=== PATIENT | male | born 1940 | race American Indian/Alaskan Native ===

== ENCOUNTER 2017-11-09 15:25 | Emergency (ER) | payer MEDICARE ==
[2017-11-09 15:34] VITALS: BP 134/78
--- NOTE | 2017-11-09 18:01 | Emergency Department Report ---
ED Extremity Problem HPI - General Chief complaint: Shoulder Injury Stated complaint: SHOULDER PAIN Time Seen by Provider: 11/09/17 17:36 Source: patient Mode of arrival: Ambulatory Limitations: No Limitations - History of Present Illness Initial comments: Patient is a 77-year-old male who is presenting with left shoulder pain for the past month. Patient states he stumbled in the yard and fell month ago and was hoping that by now shoulder feel better but is not. Patient states he has increased pain mostly at night when he is laying down to wake up after rolling over on a shoulder and pain. Patient states that at worst the pain is 7 out of 10 and he states in the daytime the pain is very tolerable and is a 2 out of 10. Patient states he mentioned this to his primary care physician 2 weeks ago who told him to "stop falling. Patient has been taking Motrin with minimal relief. Patient has not injuries or complaints at this time. - Related Data Previous Rx's Medication Instructions Recorded Last Taken Type Ibuprofen [Motrin] 600 mg PO Q8H PRN #20 tablet 11/09/17 Unknown Rx methOCARBAMOL [Robaxin TAB] 500 mg PO Q6H PRN #15 tablet 11/09/17 Unknown Rx traMADol [Ultram] 50 mg PO Q6HR PRN #12 tablet 11/09/17 Unknown Rx Allergies Allergy/AdvReac Type Severity Reaction Status Date / Time Penicillins Allergy Swelling Verified 11/09/17 15:31 ED Review of Systems ROS: Stated complaint: SHOULDER PAIN Other details as noted in HPI Comment: All other systems reviewed and negative ED Past Medical Hx - Past Medical History Previous Medical History?: No - Surgical History Past Surgical History?: No - Social History Smoking Status: Never Smoker Substance Use Type: None - Medications Home Medications: Home Medications Medication Instructions Recorded Confirmed Last Taken Type Ibuprofen [Motrin] 600 mg PO Q8H PRN #20 tablet 11/09/17 Unknown Rx methOCARBAMOL [Robaxin TAB] 500 mg PO Q6H PRN #15 tablet 11/09/17 Unknown Rx traMADol [Ultram] 50 mg PO Q6HR PRN #12 tablet 11/09/17 Unknown Rx ED Physical Exam - General Limitations: No Limitations General appearance: alert, in no apparent distress - Head Head exam: Present: atraumatic, normocephalic - Eye Eye exam: Present: normal appearance - ENT ENT exam: Present: mucous membranes moist - Neck Neck exam: Present: normal inspection - Respiratory Respiratory exam: Present: normal lung sounds bilaterally. Absent: respiratory distress - Cardiovascular Cardiovascular Exam: Present: regular rate, normal rhythm. Absent: systolic murmur, diastolic murmur, rubs, gallop - GI/Abdominal GI/Abdominal exam: Present: soft, normal bowel sounds - Rectal Rectal exam: Present: deferred - Extremities Exam Extremities exam: Present: normal inspection - Back Exam Back exam: Present: normal inspection - Neurological Exam Neurological exam: Present: alert, oriented X3 - Psychiatric Psychiatric exam: Present: normal affect, normal mood - Skin Skin exam: Present: warm, dry, intact, normal color. Absent: rash ED Course Vital Signs 11/09/17 15:31 Temperature 97.8 F Pulse Rate 78 Respiratory 18 Rate Blood Pressure 134/78 O2 Sat by Pulse 97 Oximetry ED Medical Decision Making - Medical Decision Making Visual be started on a muscle relaxant and something for pain. Patient referred to orthopedics Dr. Bkaer. Patient will be discharged home at this time. X-rays are not warranted this patient there is no bony tenderness. Critical care attestation.: If time is entered above; I have spent that time in minutes in the direct care of this critically ill patient, excluding procedure time. ED Disposition Clinical Impression: Shoulder pain Qualifiers: Chronicity: unspecified Laterality: left Qualified Code(s): M25.512 - Pain in left shoulder Disposition: -01 TO HOME OR SELFCARE Is pt being admited?: No Does the pt Need Aspirin: No Condition: Stable Instructions: Arthralgia (ED), Rotator Cuff Injury (ED) Referrals: WM BAKER MD [Staff Physician] - 3-5 Days
== END 2017-11-09 18:54 | disposition home or self-care (01) ==
LOC: ED 15:25
DX: M25.512 Pain in left shoulder (principal); Z88.0 Allergy status to penicillin
CPT/HCPCS: 99282

== ENCOUNTER 2018-09-24 11:28 | Emergency (ER) | payer MEDICARE, OTHER ==
[2018-09-24 11:40] VITALS: BP 140/83
--- NOTE | 2018-09-24 12:58 | Emergency Department Report ---
- General Chief complaint: Skin/Abscess/Foreign Body Stated complaint: BUMP ON (L) SHOULDER Time Seen by Provider: 09/24/18 12:41 Source: patient Mode of arrival: Ambulatory Limitations: No Limitations - History of Present Illness MD complaint: abscess/boil -: days(s) (3) Tetanus Up to Date: yes Location: back Severity: moderate Severity scale (0 -10): 4 - Related Data Previous Rx's Medication Instructions Recorded Last Taken Type Ibuprofen [Motrin] 600 mg PO Q8H PRN #20 tablet 11/09/17 Unknown Rx methOCARBAMOL [Robaxin TAB] 500 mg PO Q6H PRN #15 tablet 11/09/17 Unknown Rx traMADol [Ultram] 50 mg PO Q6HR PRN #12 tablet 11/09/17 Unknown Rx Allergies Allergy/AdvReac Type Severity Reaction Status Date / Time Penicillins Allergy Swelling Verified 09/24/18 11:29 Abscess Boil HPI - HPI Chief Complaint: Skin/Abscess/Foreign Body Stated Complaint: BUMP ON (L) SHOULDER Time Seen by Provider: 09/24/18 12:41 Home Medications: Previous Rx's Medication Instructions Recorded Last Taken Type Ibuprofen [Motrin] 600 mg PO Q8H PRN #20 tablet 11/09/17 Unknown Rx methOCARBAMOL [Robaxin TAB] 500 mg PO Q6H PRN #15 tablet 11/09/17 Unknown Rx traMADol [Ultram] 50 mg PO Q6HR PRN #12 tablet 11/09/17 Unknown Rx Allergies/Adverse Reactions: Allergies Allergy/AdvReac Type Severity Reaction Status Date / Time Penicillins Allergy Swelling Verified 09/24/18 11:29 ED Review of Systems ROS: Stated complaint: BUMP ON (L) SHOULDER Other details as noted in HPI Comment: All other systems reviewed and negative Constitutional: denies: chills, fever Respiratory: denies: cough, orthopnea, shortness of breath, SOB with exertion, SOB at rest Cardiovascular: denies: chest pain Gastrointestinal: denies: abdominal pain, nausea, vomiting, diarrhea, constipation, hematemesis, melena, hematochezia Musculoskeletal: denies: back pain Skin: lesions Neurological: denies: headache, weakness ED Past Medical Hx - Past Medical History Previous Medical History?: No - Surgical History Past Surgical History?: No - Social History Smoking Status: Current Every Day Smoker Substance Use Type: None - Medications Home Medications: Home Medications Medication Instructions Recorded Confirmed Last Taken Type Ibuprofen [Motrin] 600 mg PO Q8H PRN #20 tablet 11/09/17 Unknown Rx methOCARBAMOL [Robaxin TAB] 500 mg PO Q6H PRN #15 tablet 11/09/17 Unknown Rx traMADol [Ultram] 50 mg PO Q6HR PRN #12 tablet 11/09/17 Unknown Rx ED Physical Exam - General Limitations: No Limitations General appearance: alert, in no apparent distress - Head Head exam: Present: atraumatic, normocephalic, normal inspection - Eye Eye exam: Present: normal appearance, PERRL - ENT ENT exam: Present: normal exam, normal orophraynx, mucous membranes moist - Neck Neck exam: Present: normal inspection, full ROM. Absent: tenderness, meningismus, lymphadenopathy, thyromegaly - Respiratory Respiratory exam: Present: normal lung sounds bilaterally - Cardiovascular Cardiovascular Exam: Present: regular rate, normal rhythm, normal heart sounds - GI/Abdominal GI/Abdominal exam: Present: soft, normal bowel sounds. Absent: distended, tenderness, guarding, rebound, rigid, organomegaly, mass, bruit, pulsatile mass - Extremities Exam Extremities exam: Present: normal inspection, full ROM, normal capillary refill. Absent: pedal edema, calf tenderness - Back Exam Back exam: Present: normal inspection, full ROM. Absent: CVA tenderness (L), muscle spasm, paraspinal tenderness - Neurological Exam Neurological exam: Present: alert, oriented X3, CN II-XII intact (33 cm abscess to the upper back) ED Course Vital Signs 09/24/18 11:36 Temperature 97.8 F Pulse Rate 66 Respiratory 20 Rate Blood Pressure 140/83 O2 Sat by Pulse 97 Oximetry - I & D Back Type of Procedure: Simple Blade Size: 11 I & D Procedure: betadine prep, sterile drapes applied, sterile dressing applied Critical care attestation.: If time is entered above; I have spent that time in minutes in the direct care of this critically ill patient, excluding procedure time. ED Disposition Clinical Impression: Abscess Disposition: DC-01 TO HOME OR SELFCARE Is pt being admited?: No Condition: Stable Instructions: Abscess (ED), Abscess Incision and Drainage (ED) Referrals: JARVIS IRENE JR, MD [Primary Care Provider] - 3-5 Days
== END 2018-09-24 13:05 | disposition home or self-care (01) ==
LOC: ED 11:28
DX: L02.414 Cutaneous abscess of left upper limb (principal); F17.200 Nicotine dependence, unspecified, uncomplicated; Z88.0 Allergy status to penicillin